=== PATIENT | female | born 2000 | race American Indian/Alaskan Native ===

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

== ENCOUNTER 2021-03-02 14:55 | Emergency (ER) | payer MEDICAID ==
[2021-03-02 16:06] LABS: CORONAVIRUS COVID-19 NAA POSITIVE (NEGATIVE)
--- NOTE | 2021-03-02 16:57 | EDM.PDOC ---
ED HPI GENERAL MEDICAL PROBLEM - General Chief Complaint: Respiratory Problem Stated Complaint: COVID CONTACT, CAN'T SMELL Time Seen by Provider: 03/02/21 16:57 Source of Information: Reports: Patient, RN, RN Notes Reviewed History Limitations: Reports: No Limitations - History of Present Illness INITIAL COMMENTS - FREE TEXT/NARRATIVE: Pt presents to ER by POV with c/o 3 days duration of fever, chills, gen. body aches, malaise, mild cough, and headache. Today pt was informed that she was exposed to COVID last week. Denies chest pain, rapid HR, difficulty breathing, or syncope. Onset: Gradual Duration: Day(s): (3) Location: Reports: Generalized Quality: Reports: Ache Severity: Moderate Improves with: Reports: None Worsens with: Reports: None Context: Reports: Sick Contact Associated Symptoms: Reports: No Other Symptoms Treatments RN CVOR: Reports: Acetaminophen Headache Pain Score (Numeric/FACES): 4 - Related Data Allergies Allergy/AdvReac Type Severity Reaction Status Date / Time No Known Allergies Allergy Verified 03/02/21 16:58 Home Meds: Home Meds . [No Known Home Meds] 10/03/15 [History] Past Medical History - Past Health History Medical/Surgical History: Denies Medical/Surgical History Endocrine/Metabolic History: Reports: Obesity/BMI 30+ Social & Family History - Family History Family Medical History: No Pertinent Family History - Caffeine Use Caffeine Use: Reports: None - Living Situation & Occupation Living situation: Reports: with Family Occupation: Student ED ROS GENERAL - Review of Systems Review Of Systems: Comprehensive ROS is negative, except as noted in HPI. ED EXAM, GENERAL - Physical Exam Exam: See Below Exam Limited By: No Limitations General Appearance: Alert, WD/WN, No Apparent Distress, Obese Eye Exam: Bilateral Eye: Normal Inspection Nose: Normal Inspection, Normal Mucosa, No Blood Throat/Mouth: Normal Inspection, Normal Lips, Normal Teeth, Normal Gums, Normal Oropharynx, Normal Voice, No Airway Compromise Head: Atraumatic, Normocephalic Neck: Normal Inspection, Supple, Non-Tender, Full Range of Motion. No: Lymphadenopathy (L), Lymphadenopathy (R) Respiratory/Chest: No Respiratory Distress, Lungs Clear, Normal Breath Sounds, No Accessory Muscle Use, Chest Non-Tender Cardiovascular: Normal Peripheral Pulses, Regular Rate, Rhythm, No Edema, No Gallop, No JVD, No Murmur, No Rub Extremities: Normal Inspection, Normal Range of Motion, Non-Tender, Normal Capillary Refill, No Pedal Edema Neurological: Alert, Oriented, Normal Gait, No Motor/Sensory Deficits Psychiatric: Normal Mood Skin Exam: Warm, Dry, Intact, Normal Color, No Rash Course - Vital Signs Last Recorded V/S: Last Vital Signs Temp 98.6 F 03/02/21 16:58 Pulse 86 03/02/21 16:58 Resp 20 03/02/21 16:58 BP 136/84 03/02/21 16:58 Pulse Ox 99 03/02/21 16:58 - Orders/Labs/Meds Labs: Laboratory Tests 03/02/21 Range/Units 15:17 Influenza Type A RNA Negative (NEGATIVE) Influenza Type B RNA Negative (NEGATIVE) SARS-CoV-2 RNA (THERESA) Positive H (NEGATIVE) Departure - Departure Time of Disposition: 17:05 Disposition: Home, Self-Care 01 Condition: Good Clinical Impression: COVID-19 virus infection - Discharge Information *PRESCRIPTION DRUG MONITORING PROGRAM REVIEWED*: Not Applicable *COPY OF PRESCRIPTION DRUG MONITORING REPORT IN PATIENT KIMBERLEE: Not Applicable Instructions: What You Should Know About COVID-19 to Protect Yourself and Others - CDC, 10 Things You Can Do to Manage Your COVID-19 Symptoms at Home - CDC (10/11/2020) Forms: ED Department Discharge Additional Instructions: Isolate/quarantine at home for 10 days from the onset of your symptoms. You may return to work if you are symptoms free after 10 days. If you still feel sick after 10 days follow up with your primary clinic or health department and ensure that you have 2 negative COVID tests before returning to work. Take Aspirin 81mg two tablets by mouth once a day for 15 days to reduce the risk of COVID related blood clots. Return to ER or call 911 if you develop any difficulty breathing. Sepsis Event Note (ED) - Focused Exam Vital Signs: Vital Signs Temp Pulse Resp BP Pulse Ox 03/02/21 16:58 98.6 F 86 20 136/84 99
[2021-03-02 17:05] VITALS: BP 136/84; PULSE 86
== END 2021-03-02 17:20 | disposition home or self-care (01) ==
LOC: DL.ED 14:55
DX: U07.1 COVID-19 (principal)
CPT/HCPCS: 0240U; 99284

== ENCOUNTER 2023-09-22 16:30 | Emergency (ER) | payer SELFPAY ==
[2023-09-22 17:08] VITALS: BP 141/99; PULSE 69
[2023-09-22] MEDS: GI Cocktail Oral Solution 30 ML PO ONE (17:16)
== END 2023-09-22 17:33 | disposition home or self-care (01) ==
LOC: DL.ED 16:30
DX: K21.9 Gastro-esophageal reflux disease without esophagitis (principal); Z86.16 Personal history of COVID-19
CPT/HCPCS: 99284; A9270-GY